=== PATIENT | female | born 1955 | race Caucasian/White ===

== ENCOUNTER 2024-02-02 07:06 | Day surgery (SDC) | payer BC, OTHER ==
[2024-02-02] MEDS ORDERED: Ringers Lactate 1,000 ML IV ONE (07:28)
[2024-02-02] MEDS ORDERED: propofoL 200 MG/20 ML VIAL IV ONE (08:41)
[2024-02-02] MEDS ORDERED: FENTANYL CITR 100 MCG/2 ML ONE (08:41)
[2024-02-02] MEDS ORDERED: LIDOCAINE 1% MPF 5 ML VIAL ONE (08:41)
[2024-02-02] MEDS ORDERED: MIDAZOLAM HCL 2 MG/2 ML INJ ONE (08:42)
[2024-02-02] MEDS: CEFAZOLIN SODIUM 1 GM/VIAL ONE (09:21)
[2024-02-02] MEDS ORDERED: dexAMETHasone 4 MG/ML VIAL ONE (09:31)
[2024-02-02] MEDS ORDERED: ONDANSETRON 4 MG/2 ML VIAL ONE (09:32)
[2024-02-02] MEDS ORDERED: KETOROLAC 30 MG/ML INJ ONE (09:32)
[2024-02-02] MEDS: BUPIVACAINE 0.25% PF 10 ML VIAL ONE (10:04)
[2024-02-02] MEDS ORDERED: EPHEDRINE SULF 50 MG/ML VIAL ONE (10:13)
--- NOTE | 2024-02-02 12:12 | RAD REPORT ---
EXAM DESCRIPTION: RAD - Fluoroscopy <1 Hour - 02/02/2024 12:05 pm CLINICAL HISTORY: RT FOOT 2ND DIGIT HAMMERTOE REPAIR COMPARISON: None available. FINDINGS: Two Images were sent to PACS, documenting fluoroscopy use during image guided hammertoe re pair procedure. No radiologist was available for the procedure, nor will any image interpretation he provided. Please refer to the procedural report for additional details. Fluoroscopy time: Less than 0.1 Minutes. IMPRESSION: Documentation of fluoroscopy utilization as above.
[2024-02-02 12:25] VITALS: BP 124/86; TEMP 97.3; O2SAT 98
--- NOTE | 2024-02-04 13:39 | EKG ---
Test Date: 2024-01-31 Test Time: 13:27:04 [employer] Operator: PREO MEASUREMENT RESULTS: Intervals: Rate: 78 UT: 208 QRSD: 76 QT: 386 QTc: 440 [place]: P: 66 UT: 208 QRS: 20 T: 53 INTERPRETIVE STATEMENTS: Normal sinus rhythm Low voltage QRS Cannot rule out Anterior infarct, age undetermined Abnormal ECG No previous ECG available for comparison Electronically Signed On 02-04-24 13:32:53 CDT by Shyam Oropeza
== END 2024-02-02 12:16 | disposition home or self-care (01) ==
LOC: OR 07:06
PROVIDERS: ATTEND Podiatrist Foot & Ankle Surgery
PROC: 0LXV0ZZ Transfer Right Foot Tendon, Open Approach (ICD-10-PCS; 2024-02-02)
PROC: 0L8V0ZZ Division of Right Foot Tendon, Open Approach (ICD-10-PCS; principal; 2024-02-02 08:30)
DX: M20.41 Other hammer toe(s) (acquired), right foot (principal); I10 Essential (primary) hypertension; F32.A Depression, unspecified
CPT/HCPCS: 28285; 27690; 93005; J2704; J1100; J2001; J2250; J3010; J2405; J2800; J7120; J0690; 76000